=== PATIENT | female | born 1940 | race Caucasian/White ===

== ENCOUNTER → 2016-10-25 | Outpatient (CLI) | payer OTHER | LOC: CIMAGING 09:51 | DX: Z12.31 Encounter for screening mammogram for malignant neoplasm of breast (principal) | CPT/HCPCS: G0202 ==

== ENCOUNTER → 2016-11-02 | Outpatient (CLI) | payer OTHER | LOC: CIMAGING 13:29 | DX: Z12.39 Encounter for other screening for malignant neoplasm of breast (principal); N63 Unspecified lump in breast; R92.0 Mammographic microcalcification found on diagnostic imaging of breast | CPT/HCPCS: 76641; G0206 ==

== ENCOUNTER → 2016-11-10 | Day surgery (SDC) | payer OTHER ==
[~2016-11-10] MED LIST: THROMBIN (BOVINE) 5,000 UNIT VIAL TP ONE
== END | disposition home or self-care (01) ==
LOC: FIMAGING 08:23
PROVIDERS: ATTEND Family Medicine
PROC: 0HBV3ZX Excision of Bilateral Breast, Percutaneous Approach, Diagnostic (ICD-10-PCS; principal; 2016-11-10)
DX: D05.11 Intraductal carcinoma in situ of right breast (principal); D05.12 Intraductal carcinoma in situ of left breast
CPT/HCPCS: G0204

== ENCOUNTER → 2017-09-07 | Outpatient (CLI) | payer OTHER | LOC: FIMAGING 09:37 | PROVIDERS: ATTEND Family Medicine | DX: Z13.820 Encounter for screening for osteoporosis (principal); M85.89 Other specified disorders of bone density and structure, multiple sites; E07.9 Disorder of thyroid, unspecified; C50.919 Malignant neoplasm of unspecified site of unspecified female breast ==

== ENCOUNTER → 2018-12-14 | Outpatient (CLI) | payer OTHER | LOC: CIMAGING 15:24 ==